=== PATIENT | male | born 1960 | race Caucasian/White ===

== ENCOUNTER 2019-11-18 10:19 | Emergency (ER) | payer BC ==
[~2019-11-18] VITALS: Ht 175.3 cm; Wt 79.5 kg
[~2019-11-18 10:19] MED LIST: VICO5TAB17 PO
[2019-11-18] MEDS ORDERED: VITA200028 PO (10:29)
[2019-11-18] MEDS ORDERED: LISI-538 PO (10:29)
--- NOTE | 2019-11-18 11:07 | REP ---
Left ankle series: Four views. History: Trauma. Findings: There is an obliquely oriented fracture through the distal fibular metaphysis on today's radiographs. Ankle mortise is intact. There is anterolateral soft tissue swelling. There is a tiny medial malleolar chip fracture visible on the mortise view. Posterior tibia appears intact. No hindfoot fracture is seen. Impression: Medial and lateral malleolar fractures intact ankle mortise. Electronically Signed by Jaime Braun MD 11/18/2019 10:59 A
[2019-11-18] MEDS ORDERED: MORPHINE 10 MG/ML 1ML VIAL (J2270) IM ONE (14:00)
[2019-11-18] MEDS ORDERED: METAL LOCK LOOP XX ONE (14:18)
[2019-11-18 14:40] VITALS: BP 146/82
== END 2019-11-18 14:35 | disposition home or self-care (01) ==
LOC: M ED 10:19
DX: S82.52XA Displaced fracture of medial malleolus of left tibia, initial encounter for closed fracture (principal); S82.62XA Displaced fracture of lateral malleolus of left fibula, initial encounter for closed fracture; W00.0XXA Fall on same level due to ice and snow, initial encounter; Y92.019 Unspecified place in single-family (private) house as the place of occurrence of the external cause; Z79.899 Other long term (current) drug therapy
CPT/HCPCS: 73610; 96372; 99283; J2270